=== PATIENT | female | born 1975 | race Caucasian/White ===

== ENCOUNTER 2016-04-18 16:14 | Emergency (ER) | payer OTHER ==
[2016-04-18 16:41] VITALS: BP 115/62; PULSE 64; TEMP 97.5; BMI 31.8
[2016-04-18] MEDS ORDERED: SODIUM CHLORIDE 1,000 ML IV STA (17:35)
--- NOTE | 2016-04-18 17:37 | PDOC ---
History of Present Illness - General Chief Complaint: Syncope/Near Syncope Stated Complaint: SYNCOPE/LIGHTHEADED Time Seen by Provider: 04/18/16 16:55 History Source: Patient - History of Present Illness Presenting Symptoms: Dizziness, Syncope Timing/Duration: reports: resolved prior to arrival Past History - Past Medical History Allergies/Adverse Reactions: Allergies Allergy/AdvReac Type Severity Reaction Status Date / Time No Known Allergies Allergy Verified 04/18/16 16:37 Home Medications: Ambulatory Orders NK [No Known Home Medication] 10/27/14 Anemia: Yes Asthma: No Cancer: No Cardiac Disorders: No Diabetes: No HTN: No Suicide Attempt (Hx): No Seizures: No Thyroid Disease: No - Surgical History Cholecystectomy: Yes - Psycho/Social/Smoking Cessation Hx Anxiety: No Suicidal Ideation: No Smoking History: Never smoked Hx Alcohol Use: No Drug/Substance Use Hx: No Substance Use Type: None Hx Substance Use Treatment: No Review of Systems - Review of Systems Constitutional: No: Fever Respiratory: No: Shortness of Breath Cardiac (ROS): Yes: Lightheadedness. No: Chest Pain, Palpitations *Physical Exam - Vital Signs Last Vital Signs Temp Pulse Resp BP Pulse Ox 97.5 F L 64 16 115/62 100 04/18/16 16:37 04/18/16 16:37 04/18/16 16:37 04/18/16 16:37 04/18/16 16:37 - Physical Exam General Appearance: Yes: Appropriately Dressed. No: Apparent Distress HEENT: positive: Normal Voice Neck: positive: Supple Respiratory/Chest: positive: Lungs Clear, Normal Breath Sounds. negative: Respiratory Distress Cardiovascular: positive: Regular Rate, S1, S2 Gastrointestinal/Abdominal: positive: Soft. negative: Tender Extremity: positive: Normal Inspection Integumentary: positive: Dry, Warm Neurologic: positive: Fully Oriented, Alert, Normal Mood/Affect, Motor Strength 5/5 ED Treatment Course - LABORATORY CBC & Chemistry Diagram: 04/18/16 17:54 04/18/16 17:54 - ADDITIONAL ORDERS Additional order review: Laboratory Results 04/18/16 04/18/16 17:56 17:54 INR 0.98 Urine Color Straw Urine Appearance Clear Urine pH 6.0 Ur Specific [place] 1.008 Urine Protein Negative Urine Glucose (UA) Negative Urine Ketones Trace H Urine Blood Negative Urine Nitrite Negative Urine Bilirubin Negative Urine Urobilinogen Negative Ur Leukocyte Esterase Negative 04/18/16 17:54 RBC 3.85 MCV 86.9 MCHC 32.4 RDW 16.5 H MPV 8.8 Neutrophils % 60.8 Lymphocytes % 32.5 D Monocytes % 4.0 Eosinophils % 1.7 Basophils % 1.0 - Medications Given in the ED: ED Medications Discontinued Medications Generic Name Dose Route Start Last Admin Trade Name Denis PRN Reason Stop Dose Admin Sodium Chloride 1,000 mls @ 1,000 mls/hr 04/18/16 17:35 04/18/16 18:15 Normal Saline - IV 04/18/16 18:34 1,000 mls/hr ASDIR STA Administration Medical Decision Making - Medical Decision Making 04/18/16 17:32 40-year-old female history of anemia, status post transfusion 1 in 2004, recurrent dizziness, status post syncopal episode. 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 States no seizure activity was reported. Patient's reports feeling better at this time. No chest pain, shortness of breath, headache, vertigo, visual changes or focal weakness. Patient states for the past 2years, she's had recurrent dizziness and near syncopal events and for unclear reasons, has not followed up with her PMD for symptoms See exam S/p recurrent syncope Baseline now No witnessed seizure No CP or SOB Stable w/ unremarkable exam in ED Unlikely ACS, PE (PERcs out) or neuro, r/o worsening anemia vs other metabolic source, possibly vasovagal -IVF -labs -dispo pending w/u *DC/Admit/Observation/Transfer Diagnosis at time of Disposition: Syncope Qualifiers: Syncope type: unspecified Qualified Code(s): R55 - Syncope and collapse - Discharge Dispostion Condition at time of disposition: Improved - Patient Instructions Printed Discharge Instructions: DI for Syncope in Adults (Fainting) Additional Instructions: Please follow up with your PMD for further evaluation Print Language: MAORI
[2016-04-18 18:14] LABS: EOSINOPHIL 1.7 % (0-4.5); MCH 28.2 pg (25.7-33.7); MCHC 32.4 g/dl (32.0-36.0); MEAN CELL VOLUME 86.9 fl (80-96); MEAN PLT VOLUME 8.8 fl (7.5-11.1); NEUTROPHILS 60.8 % (42.8-82.8); PLATELET COUNT 270 K/MM3 (134-434); RDW 16.5 % (11.6-15.6); WHITE BLOOD COUNT 6.6 K/mm3 (4.0-10.0)
[2016-04-18 18:25] LABS: INR 0.98 (0.82-1.09); PROTHROMBIN TIME (PATIENT) 10.8 SEC (9.98-11.88)
[2016-04-18 18:42] LABS: URINE APPEARANCE CLEAR; URINE BILIRUBIN NEGATIVE (NEGATIVE); URINE BLOOD NEGATIVE (NEGATIVE); URINE COLOR STRAW; URINE GLUCOSE (UA) NEGATIVE (NEGATIVE); URINE KETONE TRACE (NEGATIVE); URINE LEUK ESTERASE NEGATIVE (NEGATIVE); URINE NITRITE NEGATIVE (NEGATIVE); URINE PROTEIN NEGATIVE (NEGATIVE); URINE UROBILINOGEN NEGATIVE E.U./dl (0.2-1.0)
[2016-04-18 18:49] LABS: ALBUMIN 3.9 g/dl (3.4-5.0); ANION GAP 12 (8-16); CALCIUM 9.2 mg/dL (8.5-10.1); CO2 24 mmol/L (21-32); CREATININE 0.6 mg/dL (0.55-1.02); GLUCOSE,RANDOM 72 mg/dL (74-106); SGOT/AST 12 U/L (15-37); SGPT/ALT 19 U/L (12-78)
[2016-04-18 18:53] LABS: ALK PHOS 86 U/L (45-117); BILIRUBIN,TOTAL 0.8 mg/dL (0.2-1.0); TOT PROT 7.2 g/dl (6.4-8.2); TROPONIN I < 0.02 ng/ml (0.00-0.05)
--- NOTE | 2016-04-18 20:42 | PDOC ---
*Physical Exam - Vital Signs Last Vital Signs Temp Pulse Resp BP Pulse Ox 97.5 F L 64 16 115/62 100 04/18/16 16:37 04/18/16 16:37 04/18/16 16:37 04/18/16 16:37 04/18/16 16:37 ED Treatment Course - LABORATORY CBC & Chemistry Diagram: 04/18/16 17:54 04/18/16 17:54 - ADDITIONAL ORDERS Additional order review: Laboratory Results 04/18/16 04/18/16 04/18/16 17:56 17:54 17:54 INR Sodium 143 Potassium 3.5 Chloride 107 Carbon Dioxide 24 Anion Gap 12 BUN 14 Creatinine 0.6 Creat Clearance w eGFR > 60 Random Glucose 72 L Calcium 9.2 Total Bilirubin 0.8 AST 12 L ALT 19 D Alkaline Phosphatase 86 Creatine Kinase 119 Troponin I < 0.02 Total Protein 7.2 Albumin 3.9 Urine Color Straw Urine Appearance Clear Urine pH 6.0 Ur Specific [place] 1.008 Urine Protein Negative Urine Glucose (UA) Negative Urine Ketones Trace H Urine Blood Negative Urine Nitrite Negative Urine Bilirubin Negative Urine Urobilinogen Negative Ur Leukocyte Esterase Negative Urine HCG, Qual Negative Blood Type O POSITIVE Antibody Screen Negative 04/18/16 17:54 INR 0.98 Sodium Potassium Chloride Carbon Dioxide Anion Gap BUN Creatinine Creat Clearance w eGFR Random Glucose Calcium Total Bilirubin AST ALT Alkaline Phosphatase Creatine Kinase Troponin I Total Protein Albumin Urine Color Urine Appearance Urine pH Ur Specific [place] Urine Protein Urine Glucose (UA) Urine Ketones Urine Blood Urine Nitrite Urine Bilirubin Urine Urobilinogen Ur Leukocyte Esterase Urine HCG, Qual Blood Type Antibody Screen 04/18/16 17:54 RBC 3.85 MCV 86.9 MCHC 32.4 RDW 16.5 H MPV 8.8 Neutrophils % 60.8 Lymphocytes % 32.5 D Monocytes % 4.0 Eosinophils % 1.7 Basophils % 1.0 - Medications Given in the ED: ED Medications Discontinued Medications Generic Name Dose Route Start Last Admin Trade Name Freq PRN Reason Stop Dose Admin Sodium Chloride 1,000 mls @ 1,000 mls/hr 04/18/16 17:35 04/18/16 18:15 Normal Saline - IV 04/18/16 18:34 1,000 mls/hr ASDIR STA Administration Progress Note - Progress Note Progress Note: Sign out: 40-year-old female found resting comfortably on the stretcher without any complaints. Patient denies dizziness, lightheadedness, headache, visual disturbance, neck/back pains, chest pain, shortness of breath, abdominal pains, extremity numbness or tingling sensation at this time. *DC/Admit/Observation/Transfer Diagnosis at time of Disposition: Syncope Qualifiers: Syncope type: unspecified Qualified Code(s): R55 - Syncope and collapse - Discharge Dispostion Condition at time of disposition: Improved - Referrals Referrals: Brian Cruz MD [Primary Care Provider] - - Patient Instructions Printed Discharge Instructions: DI for Syncope in Adults (Fainting) Additional Instructions: Please follow up with your PMD for further evaluation Print Language: POLISH - Post Discharge Activity
--- NOTE | 2016-04-19 17:58 | EKG ---
Test Reason : Blood Pressure : / mmHG Vent. Rate : 060 BPM Atrial Rate : 060 BPM P-R Int : 162 ms QRS Dur : 076 ms QT Int : 436 ms P-R-T Axes : 040 -02 018 degrees QTc Int : 436 ms NORMAL SINUS RHYTHM NORMAL ECG WHEN COMPARED WITH ECG OF 27-OCT-2014 19:06, NO SIGNIFICANT CHANGE WAS FOUND Confirmed by JANNA NOVAK MD ([id number]) on 04/19/2016 5:57:54 PM Referred By: Confirmed By:JANNA NOVAK MD
== END 2016-04-18 20:46 | disposition home or self-care (01) ==
LOC: JER 16:14
PROC: 3E0337Z Introduction of Electrolytic and Water Balance Substance into Peripheral Vein, Percutaneous Approach (ICD-10-PCS; principal; 2016-04-18)
DX: R55 Syncope and collapse (principal); D64.9 Anemia, unspecified
CPT/HCPCS: 36415; 80053; 81003; 82550; 84484; 84703; 85025; 85610; 86850; 86900; 86901; 93005; 93010; 96360; 99284-25

== ENCOUNTER 2017-04-10 15:01 | Emergency (ER) | payer OTHER ==
[2017-04-10 15:33] VITALS: BP 114/60; PULSE 65; TEMP 98.1; BMI 35.9
--- NOTE | 2017-04-10 15:33 | PDOC ---
Rapid Medical Evaluation Chief Complaint: Bite Time Seen by Provider: 04/10/17 15:27 Medical Evaluation: Allergies Allergy/AdvReac Type Severity Reaction Status Date / Time No Known Allergies Allergy Verified 04/18/16 16:37 04/10/17 15:29 I have performed a brief in-person evaluation of this patient. The patient presents with a chief complaint of: RIGHT UPPER ARM PaIN, S/P DOG Bite this AM - wqas at clients house, was family pet. Pertinent physical exam findings: bruising to upper right underarm. with faint bruising , abrasion- no noted puncture wound. Teteanus last year. I have ordered the following: Nothing The patient will proceed to the ED for further evaluation
[2017-04-10] MEDS ORDERED: IBUPROFEN 600 MG TABLET (FP) PO ONE ×2 (17:44→17:48)
--- NOTE | 2017-04-10 17:50 | PDOC ---
History of Present Illness - General Chief Complaint: Bite Stated Complaint: DOG BITE Time Seen by Provider: 04/10/17 15:27 History Source: Patient Exam Limitations: No Limitations - History of Present Illness Initial Comments: 04/10/17 17:45 pt with right upper arm bruising after being bit by dog at 11am today. Pt was cleaning a house and bit by the family dog. no pmhx. skin is intact no bleeding. Location: reports: extremities (right upper arm with 2cm bruise skin intact no open wound ) Past History - Past Medical History Allergies/Adverse Reactions: Allergies Allergy/AdvReac Type Severity Reaction Status Date / Time No Known Allergies Allergy Verified 04/18/16 16:37 Home Medications: Ambulatory Orders NK [No Known Home Medication] 10/27/14 Anemia: Yes Asthma: No Cancer: No Cardiac Disorders: No Diabetes: No HTN: No Seizures: No Thyroid Disease: No - Surgical History Cholecystectomy: Yes - Suicide/Smoking/Psychosocial Hx Smoking History: Never smoked Hx Alcohol Use: No Drug/Substance Use Hx: No Substance Use Type: None Hx Substance Use Treatment: No Review of Systems - Review of Systems Able to Perform ROS?: Yes Is the patient limited Czech proficient: Yes Constitutional: No: Symptoms Reported HEENTM: No: Symptoms Reported Integumentary: Yes: Symptoms Reported *Physical Exam - Vital Signs Last Vital Signs Temp Pulse Resp BP Pulse Ox 98.1 F 65 18 114/60 99 04/10/17 15:28 04/10/17 15:28 04/10/17 15:28 04/10/17 15:28 04/10/17 15:28 - Physical Exam General Appearance: Yes: Nourished, Appropriately Dressed HEENT: positive: EOMI, SHADIA Neck: positive: Supple Respiratory/Chest: positive: Lungs Clear, Normal Breath Sounds Cardiovascular: positive: Regular Rhythm, Regular Rate Gastrointestinal/Abdominal: positive: Normal Bowel Sounds Musculoskeletal: positive: Normal Inspection Extremity: positive: Normal Capillary Refill, Normal Inspection, Normal Range of Motion Integumentary: positive: Bruising (right upper arm with 2 cm bruise) Neurologic: positive: Motor Strength 5/5 *DC/Admit/Observation/Transfer Diagnosis at time of Disposition: Contusion Qualifiers: Encounter type: initial encounter Contusion area: upper arm Laterality: right Qualified Code(s): S40.021A - Contusion of right upper arm, initial encounter Dog bite Qualifiers: Encounter type: initial encounter Qualified Code(s): W54.0XXA - Bitten by dog, initial encounter - Discharge Dispostion Disposition: HOME Condition at time of disposition: Good - Referrals Referrals: Brian Cruz MD [Primary Care Provider] - - Patient Instructions Additional Instructions: apply ice every 2hrs for 20 minutes to the bruise for the next 2 days while awake take motrin 800mg every 8hrs for pain as needed return to ER for any worsening symptoms aplique hielo cada 2 horas scooter 20 minutos al moretn scooter los 2 thomas siguientes mientras est despierto angelic motrin 800 mg cada 8 horas para el dolor segn sea necesario volver a la kristina de emergencias por cualquier empeoramiento de los sntomas - Post Discharge Activity
== END 2017-04-10 18:03 | disposition home or self-care (01) ==
LOC: JER 15:01 → JERFT 15:01
DX: S40.021A Contusion of right upper arm, initial encounter (principal); W54.0XXA Bitten by dog, initial encounter; Y93.E9 Activity, other interior property and clothing maintenance; Y92.098 Other place in other non-institutional residence as the place of occurrence of the external cause; Y99.0 Civilian activity done for income or pay
CPT/HCPCS: 99281-25

== ENCOUNTER 2019-11-07 16:48 | Emergency (ER) | payer OTHER ==
--- NOTE | 2019-11-07 16:54 | PDOC ---
Rapid Medical Evaluation Time Seen by Provider: 11/07/19 16:49 Medical Evaluation: Allergies Allergy/AdvReac Type Severity Reaction Status Date / Time No Known Allergies Allergy Verified 11/07/19 16:49 11/07/19 16:51 Pt presents for evaluation of R sided back pain for three days. Took Tylenol this morning for the pain with some relief of her symptoms. Works as a house keeper Exam: TTP of the L rhomboid with palpable spasm, mild L sided CVA tenderness. Orders: urine Pt to proceed to the ER for evaluation Discharge Disposition - Diagnosis Back pain Qualifiers: Back pain location: thoracic back pain Chronicity: acute Back pain laterality: left Qualified Code(s): M54.6 - Pain in thoracic spine - Referrals - Patient Instructions - Post Discharge Activity
[2019-11-07 17:02] VITALS: BP 128/73; PULSE 84; TEMP 98.3; BMI 34.6
[2019-11-07] MEDS ORDERED: KETOROLAC TROMETHAMINE 60 MG/2 ML VIAL IM ONE (17:11)
--- NOTE | 2019-11-07 17:31 | PDOC ---
History of Present Illness - General Chief Complaint: Back Pain Stated Complaint: BACK PAIN Time Seen by Provider: 11/07/19 16:49 - History of Present Illness Initial Comments: 11/07/19 17:28 44-year-old female without comorbidities assures me there is no chance of presents for upper upper back pain x3 days without any precipitating traumatic event she did some heavy lifting a few days prior to the onset of symptoms. Past History - Medical History Allergies/Adverse Reactions: Allergies Allergy/AdvReac Type Severity Reaction Status Date / Time No Known Allergies Allergy Verified 11/07/19 16:49 Home Medications: Ambulatory Orders Cyclobenzaprine HCl [Flexeril 10 mg] 10 mg PO HS PRN #10 tablet 11/07/19 Ibuprofen [Motrin -] 600 mg PO TID #30 tablet 11/07/19 Anemia: Yes Asthma: No Cancer: No Cardiac Disorders: No COPD: No Diabetes: No HTN: No Seizures: No Thyroid Disease: No - Surgical History Cholecystectomy: Yes - Reproductive History Is Patient Now?: No - Immunization History Immunization Up to Date: Yes - Psycho-Social/Smoking History Smoking History: Never smoked - Substance Abuse Hx (Audit-C & DAST Scrn) How often the patient has a drink containing alcohol: Never Score: In Men: 4 or > Positive; In Women: 3 or > Positive: 0 Screen Result (Pos requires Nsg. Audit-10AR): Negative In the last yr the pt used illegal drug/Rx for NonMed reason: No Score: Yes response is considered Positive: 0 Screen Result (Positive result requires Nsg. DAST-10): Negative Review of Systems - Review of Systems : No: Burning, Dysuria, Discharge, Frequency, Flank Pain Musculoskeletal: Yes: Back Pain *Physical Exam - Vital Signs Last Vital Signs Temp Pulse Resp BP Pulse Ox 98.3 F 84 20 128/73 100 11/07/19 16:50 11/07/19 16:50 11/07/19 16:50 11/07/19 16:50 11/07/19 16:50 - Physical Exam 11/07/19 17:28 Full range of motion of the cervical spine without paracervical musculature tenderness. No midline tenderness. No gross sensorimotor deficits bilateral upper extremities 5 out of 5 strength. Mild parathoracic and levator scapula musculature spasm and tenderness. No CVA tenderness no lower back tenderness neurovascular intact bilateral lower extremities 5 out of 5 strength. Medical Decision Making - Medical Decision Making 11/07/19 17:29 Thoracic spine musculature strain levator scapula. Follow-up with Ortho discussed use of Motrin and Flexeril relief with Toradol in the emergency room. Patient understands to start Motrin tomorrow Flexeril may be started this evening. I have reviewed the pathophysiology with the patient. They are in agreement with the treatment plan all questions were answered to their satisfaction. Understanding for follow-up without fail was also conveyed to the patient. Again they are in agreement. Discharge - Discharge Information Problems reviewed: Yes Clinical Impression/Diagnosis: Strain of levator scapulae muscle Back pain Qualifiers: Back pain location: thoracic back pain Chronicity: acute Back pain laterality: left Qualified Code(s): M54.6 - Pain in thoracic spine Condition: Stable Disposition: HOME - Admission No - Additional Discharge Information Prescriptions: Cyclobenzaprine HCl [Flexeril 10 mg] 10 mg PO HS PRN #10 tablet PRN Reason: Muscle Spasms Ibuprofen [Motrin -] 600 mg PO TID #30 tablet - Follow up/Referral Referrals: Brian Cruz MD [Primary Care Provider] - Anatoly Oliva DO [Staff Physician] - - Patient Discharge Instructions Additional Instructions: You may start the Flexeril this evening. Do not start the Motrin until tomorrow. You were given an injection of a long-acting anti-inflammatory. Return to the emergency room for worsening symptoms and without fail follow-up with orthopedic surgery in 2 to 3 days for further evaluation and treatment options. - Post Discharge Activity
[2019-11-07 18:05] LABS: URINE APPEARANCE CLEAR; URINE BILIRUBIN NEGATIVE (NEGATIVE); URINE COLOR YELLOW; URINE GLUCOSE (UA) NEGATIVE (NEGATIVE); URINE KETONE NEGATIVE (NEGATIVE); URINE LEUK ESTERASE NEGATIVE (NEGATIVE); URINE NITRITE NEGATIVE (NEGATIVE); URINE PROTEIN NEGATIVE (NEGATIVE); URINE UROBILINOGEN 0.2 mg/dL (0.2-1.0)
[2019-11-07] MEDS ORDERED: KETOROLAC TROMETHAMINE 60 MG/2 ML VIAL ONE (18:06)
[2019-11-07 18:16] LABS: HCG,QUALITATIVE URINE Negative
== END 2019-11-07 18:10 | disposition home or self-care (01) ==
LOC: JER 16:48 → JERFT 16:48
PROC: 3E0233Z Introduction of Anti-inflammatory into Muscle, Percutaneous Approach (ICD-10-PCS; principal; 2019-11-07)
DX: M54.6 Pain in thoracic spine (principal)
CPT/HCPCS: 81003; 84703; 87086; 96372; 99284-25